=== PATIENT | male | born 2000 | race Hispanic/Latino ===

== ENCOUNTER 2021-04-13 07:54 | Emergency (ER) | payer SELFPAY ==
[~2021-04-13] VITALS: Ht 172.7 cm; Wt 120.3 kg
[2021-04-13] MEDS ORDERED: CEFDINIR300 MG PO (08:14)
== END 2021-04-13 08:28 | disposition home or self-care (01) ==
LOC: FSED 08:11
DX: R05.9 Cough, unspecified (principal); J20.9 Acute bronchitis, unspecified; J02.9 Acute pharyngitis, unspecified
CPT/HCPCS: 83518; 99283